=== PATIENT | female | born 1970 | race Caucasian/White ===

== ENCOUNTER 2018-03-01 12:43 | Inpatient (IN) | payer MEDICAID, SELFPAY ==
[~2018-03-01] VITALS: Ht 165.1 cm; Wt 129.3 kg
[2018-03-01] MEDS ORDERED: SODIUM CHLORIDE 0.9% 1,000ML IVBOLUS ONE (13:00)
[2018-03-01] MEDS ORDERED: SODIUM CHLORIDE FLUSH 10ML SYR IVF ONE (13:00)
[2018-03-01] MEDS ORDERED: ACETAMINOPHEN 325 MG TABLET ONE (13:15)
[2018-03-01] MEDS ORDERED: ACETAMINOPHEN 325 MG TABLET PO ONE (13:30)
[2018-03-01] MEDS ORDERED: MORPHINE SULFATE 4 MG/ML, 1ML IVPush PRN (13:30)
[2018-03-01 13:36] LABS: ALBUMIN 2.6 g/dL (3.4-5.0); ANION GAP 10 mmol/L (5-15); CALCIUM 9.7 mg/dL (8.5-10.1); CHLORIDE 101 mmol/L (98-107)
[2018-03-01] MEDS ORDERED: MORPHINE SULFATE 4 MG/ML, 1ML ONE (13:36)
[2018-03-01 13:42] LABS: ALANINE AMINOTRANSFERASE 81 U/L (12-78); ALKALINE PHOSPHATASE 673 U/L (45-117); BILIRUBIN,TOTAL 0.8 mg/dL (0.2-1.0); TOTAL PROTEIN 7.8 g/dL (6.4-8.2); TROPONIN I < 0.015 ng/mL (0.000-0.045)
[2018-03-01 13:43] LABS: MD YES; MEAN CORPUSCULAR HEMOGLOBIN 30.1 pg (27.0-34.8); MEAN CORPUSCULAR HGB CONC 33.9 g/dL (32.4-35.8); MEAN CORPUSCULAR VOLUME 88.8 fL (80-100); MEAN PLATELET VOLUME 8.8 fL (7.4-10.4); PLATELET COUNT 88 x10^3/uL (130-400); RED BLOOD COUNT 3.79 x10^6/uL (3.82-5.3); RED CELL DISTRIBUTION WIDTH 13.8 % (9.6-15.2)
[2018-03-01 13:51] LABS: BAND#(MANUAL) 0.76 x10^3/uL; BANDS%(MANUAL) 9 % (0-7); BASOS#(MANUAL) 0.08 x10^3/uL (0-0.1); BASOS% (MANUAL) 1 % (0-1); METAMYELOCYTES# (MANUAL) 0.17 x10^3/uL (0-0); METAMYELOCYTES% (MANUAL) 2 % (0-1)
[2018-03-01 13:54] LABS: NRBC % (MANUAL) 7 % (0-1); OTHER CELLS # (MANUAL) 0.08 x10^3/uL (0-0); OTHER CELLS % (MANUAL) 1 % (0-0)
[2018-03-01 13:55] LABS: LYMPHS% (MANUAL) 19 % (22-44); MONOS% (MANUAL) 6 % (2-9); SEG#(MANUAL) 5.21 x10^3/uL (1.8-6.8); SEGS% (MANUAL) 62 % (42-75)
[2018-03-01 13:56] LABS: <PLATELET ESTIMATE> DECREASED; ANISOCYTOSIS 1+; POLYCHROMASIA 1+
[2018-03-01 13:57] LABS: <PLT MORPHOLOGY> NORMAL PLT MORPH
[2018-03-01] MEDS ORDERED: OMNIPAQUE 350 MG/ML, 150 ML BOTTLE ONE (14:11)
[2018-03-01] MEDS ORDERED: ALBUTEROL/IPRATROPIUM 2.5MG/0.5MG, 3 ML ONE (14:22)
[2018-03-01] MEDS: ALBUTEROL/IPRATROPIUM 2.5MG/0.5MG, 3 ML NPPB SCH ×2 (14:25→14:26)
[2018-03-01] MEDS ORDERED: IBUP-1484 PO (15:12)
[2018-03-01] MEDS ORDERED: SODIUM CHLORIDE FLUSH 10ML SYR IVF PRN (15:30)
[2018-03-01] MEDS ORDERED: ONDANSETRON 2MG/ML, 2ML IVPush PRN (16:00)
[2018-03-01] MEDS ORDERED: LABETALOL 5MG/ML, 20ML IVPush PRN (16:00)
[2018-03-01] MEDS ORDERED: NITROGLYCERIN 0.4 MG BOTTLE (25 TABS) SL PRN (16:00)
[2018-03-01] MEDS ORDERED: ASPIRIN 81 MG TABLET CHEW PO ONE ×2 (16:00→21:00)
[2018-03-01] MEDS ORDERED: ACETAMINOPHEN 325 MG TABLET PO PRN (16:00)
[2018-03-01] MEDS: SODIUM CHLORIDE 0.9% 1,000 ML IV SCH ×2 (16:16→20:44)
[2018-03-01 16:43] LABS: INTERNATIONAL NORMALIZED RATIO 1.2 (0.93-1.1); PROTHROMBIN TIME 12.3 Seconds (9.6-11.5)
[2018-03-01 16:47] LABS: ACETAMINOPHEN 3 mcg/mL (10-30); TROPONIN I < 0.015 ng/mL (0.000-0.045)
[2018-03-01] MEDS ORDERED: SODIUM BICARBONATE 4.0%, 5ML ONE (17:20)
[2018-03-01] MEDS ORDERED: LIDOCAINE 1%, 20ML ONE (17:20)
[2018-03-01] MEDS ORDERED: LIDOCAINE 1%-EPI 1:100K, 20ML ONE (17:20)
[2018-03-01 20:00] VITALS: BP 133/79
[2018-03-01] MEDS: HEPARIN 5,000 UNITS/ML, 1ML SQ SCH (20:45)
[2018-03-01] MEDS: OXYcodone/APAP 5/325MG TABLET PO PRN (20:45)
[2018-03-01 23:21] LABS: TROPONIN I < 0.015 ng/mL (0.000-0.045)
[2018-03-02] MEDS: OXYcodone/APAP 5/325MG TABLET PO PRN ×5 (01:03→20:31)
[2018-03-02 01:50] VITALS: BP 97/63
[2018-03-02 04:40] LABS: MEAN CORPUSCULAR HEMOGLOBIN 29.5 pg (27.0-34.8); MEAN CORPUSCULAR HGB CONC 33.4 g/dL (32.4-35.8); MEAN CORPUSCULAR VOLUME 88.6 fL (80-100); MEAN PLATELET VOLUME 8.5 fL (7.4-10.4); PLATELET COUNT 72 x10^3/uL (130-400); RED BLOOD COUNT 3.19 x10^6/uL (3.82-5.3); RED CELL DISTRIBUTION WIDTH 13.8 % (9.6-15.2)
[2018-03-02 04:46] LABS: ALBUMIN 2.3 g/dL (3.4-5.0); ANION GAP 11 mmol/L (5-15); CALCIUM 8.4 mg/dL (8.5-10.1); CHLORIDE 105 mmol/L (98-107)
[2018-03-02 04:49] LABS: ALANINE AMINOTRANSFERASE 68 U/L (12-78); ALKALINE PHOSPHATASE 547 U/L (45-117); BILIRUBIN,TOTAL 0.7 mg/dL (0.2-1.0); TOTAL PROTEIN 6.7 g/dL (6.4-8.2)
[2018-03-02 05:07] LABS: MD YES
[2018-03-02 05:10] LABS: <PLATELET ESTIMATE> DECREASED; <PLT MORPHOLOGY> NORMAL PLT MORPH; ANISOCYTOSIS 1+; BAND#(MANUAL) 0.64 x10^3/uL; BANDS%(MANUAL) 10 % (0-7); EOS#(MANUAL) 0.06 x10^3/uL (0.0-0.4); EOS% (MANUAL) 1 % (1-7); LYMPH#(MANUAL) 1.28 x10^3/uL (1-3.4); LYMPHS% (MANUAL) 20 % (22-44); METAMYELOCYTES# (MANUAL) 0.06 x10^3/uL (0-0); METAMYELOCYTES% (MANUAL) 1 % (0-1); MONOS#(MANUAL) 0.26 x10^3/uL (0.3-2.7); MONOS% (MANUAL) 4 % (2-9); MYELOCYTES# (MANUAL) 0.13 x10^3/uL (0-0); MYELOCYTES% (MANUAL) 2 % (0-0); NRBC % (MANUAL) 4 % (0-1); POLYCHROMASIA 1+; SEG#(MANUAL) 3.97 x10^3/uL (1.8-6.8); SEGS% (MANUAL) 62 % (42-75)
[2018-03-02] MEDS: HEPARIN 5,000 UNITS/ML, 1ML SQ SCH ×3 (05:19→20:09)
[2018-03-02 07:49] VITALS: BP 105/64
[2018-03-02 10:57] LABS: MICROSCOPIC INDICATED
[2018-03-02] MEDS ORDERED: OMNIPAQUE 350 MG/ML, 150 ML BOTTLE ONE (14:30)
[2018-03-02] MEDS ORDERED: GADOBUTROL 15 MMOL/15 ML VIAL ONE (14:54)
[2018-03-02] MEDS ORDERED: SODIUM CHLORIDE 0.9% 1,000 ML IV SCH (15:55)
[2018-03-02] MEDS: SODIUM CHLORIDE 0.9% 1,000 ML IV SCH (15:55)
[2018-03-02 19:46] VITALS: BP 106/67
[2018-03-02] MEDS: TRAZODONE 50MG TABLET PO PRN (22:03)
[2018-03-03 00:48] VITALS: BP 114/77
[2018-03-03] MEDS: SODIUM CHLORIDE 0.9% 1,000 ML IV SCH ×2 (02:01→16:15)
[2018-03-03] MEDS: OXYcodone/APAP 5/325MG TABLET PO PRN ×4 (03:55→22:15)
[2018-03-03 04:30] LABS: ALBUMIN 2.2 g/dL (3.4-5.0); ANION GAP 16 mmol/L (5-15); CALCIUM 8.9 mg/dL (8.5-10.1); CHLORIDE 102 mmol/L (98-107)
[2018-03-03 04:34] LABS: ALANINE AMINOTRANSFERASE 66 U/L (12-78); ALKALINE PHOSPHATASE 633 U/L (45-117); CREATININE 1.62 mg/dL (0.55-1.02)
[2018-03-03 05:09] LABS: MD YES; MEAN CORPUSCULAR HEMOGLOBIN 30.4 pg (27.0-34.8); MEAN CORPUSCULAR HGB CONC 33.9 g/dL (32.4-35.8); MEAN CORPUSCULAR VOLUME 89.8 fL (80-100); MEAN PLATELET VOLUME 9.1 fL (7.4-10.4); PLATELET COUNT 64 x10^3/uL (130-400); RED CELL DISTRIBUTION WIDTH 14.7 % (9.6-15.2)
[2018-03-03 05:12] LABS: ANISOCYTOSIS 1+; BAND#(MANUAL) 1.07 x10^3/uL; BANDS%(MANUAL) 15 % (0-7); LYMPH#(MANUAL) 1.85 x10^3/uL (1-3.4); LYMPHS% (MANUAL) 26 % (22-44); MONOS#(MANUAL) 0.28 x10^3/uL (0.3-2.7); MONOS% (MANUAL) 4 % (2-9); MYELOCYTES# (MANUAL) 0.07 x10^3/uL (0-0); MYELOCYTES% (MANUAL) 1 % (0-0); NRBC % (MANUAL) 5 % (0-1); SEG#(MANUAL) 3.83 x10^3/uL (1.8-6.8); SEGS% (MANUAL) 54 % (42-75)
[2018-03-03 05:13] LABS: <PLATELET ESTIMATE> DECREASED; <PLT MORPHOLOGY> NORMAL PLT MORPH; POLYCHROMASIA 1+
[2018-03-03] MEDS: HEPARIN 5,000 UNITS/ML, 1ML SQ SCH ×3 (05:32→22:15)
[2018-03-03 08:00] VITALS: BP 110/69
[2018-03-03 13:33] VITALS: BP 107/68
[2018-03-03 19:36] VITALS: BP 117/74
[2018-03-03] MEDS: TRAZODONE 50MG TABLET PO PRN (22:15)
[2018-03-04] MEDS: SODIUM CHLORIDE 0.9% 1,000 ML IV SCH ×4 (01:05→21:53)
[2018-03-04 02:30] VITALS: BP 101/69
[2018-03-04 05:16] LABS: ALBUMIN 2.1 g/dL (3.4-5.0); ANION GAP 11 mmol/L (5-15); CALCIUM 8.6 mg/dL (8.5-10.1); CHLORIDE 103 mmol/L (98-107)
[2018-03-04 05:19] LABS: ALANINE AMINOTRANSFERASE 59 U/L (12-78); ALKALINE PHOSPHATASE 766 U/L (45-117); BILIRUBIN,TOTAL 1.3 mg/dL (0.2-1.0); CREATININE 1.75 mg/dL (0.55-1.02); TOTAL PROTEIN 6.6 g/dL (6.4-8.2)
[2018-03-04] MEDS: OXYcodone/APAP 5/325MG TABLET PO PRN ×3 (05:22→18:38)
[2018-03-04] MEDS: HEPARIN 5,000 UNITS/ML, 1ML SQ SCH ×3 (05:22→21:51)
[2018-03-04 05:24] LABS: MEAN CORPUSCULAR HEMOGLOBIN 30.9 pg (27.0-34.8); MEAN CORPUSCULAR VOLUME 88.4 fL (80-100); MEAN PLATELET VOLUME 8.8 fL (7.4-10.4); PLATELET COUNT 55 x10^3/uL (130-400); RED BLOOD COUNT 2.73 x10^6/uL (3.82-5.3); RED CELL DISTRIBUTION WIDTH 14.4 % (9.6-15.2)
[2018-03-04 05:25] LABS: MD YES
[2018-03-04 05:29] LABS: <PLATELET ESTIMATE> DECREASED; <PLT MORPHOLOGY> NORMAL PLT MORPH; ANISOCYTOSIS 1+; BAND#(MANUAL) 1.14 x10^3/uL; BANDS%(MANUAL) 20 % (0-7); LYMPH#(MANUAL) 0.86 x10^3/uL (1-3.4); LYMPHS% (MANUAL) 15 % (22-44); METAMYELOCYTES# (MANUAL) 0.17 x10^3/uL (0-0); METAMYELOCYTES% (MANUAL) 3 % (0-1); MONOS#(MANUAL) 0.23 x10^3/uL (0.3-2.7); MONOS% (MANUAL) 4 % (2-9); NRBC % (MANUAL) 5 % (0-1); POLYCHROMASIA 1+; SEG#(MANUAL) 3.31 x10^3/uL (1.8-6.8); SEGS% (MANUAL) 58 % (42-75)
[2018-03-04 08:04] VITALS: BP 96/61
[2018-03-04 11:40] LABS: POTASSIUM,URINE RANDOM 44 mmol/L
[2018-03-04 11:46] LABS: CHLORIDE,URINE RANDOM < 10 mmol/L; SODIUM,URINE RANDOM < 5 mmol/L
[2018-03-04 11:50] LABS: MICROSCOPIC INDICATED
[2018-03-04 12:53] VITALS: BP 103/67
[2018-03-04] MEDS ORDERED: SODIUM CHLORIDE 0.9% 1,000 ML IV SCH (15:55)
[2018-03-04 19:40] VITALS: BP 97/52
[2018-03-04] MEDS: TRAZODONE 50MG TABLET PO PRN (21:51)
[2018-03-05 01:47] VITALS: BP 95/56
[2018-03-05 02:34] VITALS: BP 122/74
[2018-03-05] MEDS: OXYcodone/APAP 5/325MG TABLET PO PRN ×2 (02:58→09:07)
[2018-03-05] MEDS: SODIUM CHLORIDE 0.9% 1,000 ML IV SCH ×2 (05:02→12:01)
[2018-03-05] MEDS: HEPARIN 5,000 UNITS/ML, 1ML SQ SCH (05:06)
[2018-03-05 05:38] LABS: MEAN CORPUSCULAR HEMOGLOBIN 30.4 pg (27.0-34.8); MEAN CORPUSCULAR HGB CONC 34.2 g/dL (32.4-35.8); MEAN CORPUSCULAR VOLUME 88.8 fL (80-100); MEAN PLATELET VOLUME 8.5 fL (7.4-10.4); RED BLOOD COUNT 2.75 x10^6/uL (3.82-5.3); RED CELL DISTRIBUTION WIDTH 14.6 % (9.6-15.2)
[2018-03-05 05:42] LABS: PLATELET COUNT 49 x10^3/uL (130-400)
[2018-03-05 05:43] LABS: CHLORIDE 104 mmol/L (98-107)
[2018-03-05 05:58] LABS: MD YES
[2018-03-05 05:59] LABS: ALANINE AMINOTRANSFERASE 58 U/L (12-78); ALBUMIN 1.9 g/dL (3.4-5.0); ALKALINE PHOSPHATASE 815 U/L (45-117); ANION GAP 15 mmol/L (5-15); BILIRUBIN,TOTAL 1.4 mg/dL (0.2-1.0); CALCIUM 8.7 mg/dL (8.5-10.1); CREATINE KINASE, TOTAL 310 U/L (26-192); CREATININE 1.38 mg/dL (0.55-1.02); TOTAL PROTEIN 6.4 g/dL (6.4-8.2)
[2018-03-05 06:01] LABS: ANISOCYTOSIS 1+; BAND#(MANUAL) 0.95 x10^3/uL; BANDS%(MANUAL) 15 % (0-7); LYMPH#(MANUAL) 0.82 x10^3/uL (1-3.4); LYMPHS% (MANUAL) 13 % (22-44); METAMYELOCYTES# (MANUAL) 0.19 x10^3/uL (0-0); METAMYELOCYTES% (MANUAL) 3 % (0-1); MONOS#(MANUAL) 0.13 x10^3/uL (0.3-2.7); MONOS% (MANUAL) 2 % (2-9); MYELOCYTES# (MANUAL) 0.06 x10^3/uL (0-0); MYELOCYTES% (MANUAL) 1 % (0-0); NRBC % (MANUAL) 8 % (0-1); POLYCHROMASIA 1+; SEG#(MANUAL) 4.16 x10^3/uL (1.8-6.8); SEGS% (MANUAL) 66 % (42-75)
[2018-03-05 06:03] LABS: <PLATELET ESTIMATE> DECREASED; <PLT MORPHOLOGY> NORMAL PLT MORPH
[2018-03-05 07:27] VITALS: BP 109/66
[2018-03-05] MEDS: METOPROLOL TARTRATE 25 MG TABLET PO SCH ×2 (08:58→17:43)
[2018-03-05 10:49] LABS: HIT RESULT POSITIVE (NEGATIVE)
[2018-03-05 12:24] VITALS: BP_SYST 90; BP_SYST 95; BP_DIAS 55; BP_DIAS 62
[2018-03-05] MEDS ORDERED: ERGOCALCIFEROL 50,000 UNIT CAPSULE PO SCH (15:00)
[2018-03-05] MEDS: MEROPENEM 1 GM in SODIUM CHLORIDE 0.9% 100 ML IV SCH ×2 (15:25→23:05)
[2018-03-05] MEDS: SODIUM BICARB 8.4%,50ML SYR. 75 MEQ in SODIUM CHLORIDE 0.45% 1,000 ML IV SCH (17:05)
[2018-03-05 19:16] VITALS: BP 102/66
[2018-03-06 00:44] VITALS: BP 114/69
[2018-03-06] MEDS: morphine SULFATE 10 MG/ML, 1ML IVPush PRN ×3 (00:46→19:45)
[2018-03-06] MEDS: SODIUM BICARB 8.4%,50ML SYR. 75 MEQ in SODIUM CHLORIDE 0.45% 1,000 ML IV SCH ×2 (03:57→11:53)
[2018-03-06 05:46] LABS: MEAN CORPUSCULAR HEMOGLOBIN 30.2 pg (27.0-34.8); MEAN CORPUSCULAR HGB CONC 34.3 g/dL (32.4-35.8); RED BLOOD COUNT 2.66 x10^6/uL (3.82-5.3)
[2018-03-06 05:50] LABS: CHLORIDE 107 mmol/L (98-107)
[2018-03-06 06:00] LABS: ALANINE AMINOTRANSFERASE 60 U/L (12-78); ALBUMIN 1.8 g/dL (3.4-5.0); ALKALINE PHOSPHATASE 906 U/L (45-117); ANION GAP 14 mmol/L (5-15); BILIRUBIN,TOTAL 1.4 mg/dL (0.2-1.0); CALCIUM 8.5 mg/dL (8.5-10.1); CREATININE 0.97 mg/dL (0.55-1.02); TOTAL PROTEIN 6.1 g/dL (6.4-8.2)
[2018-03-06] MEDS: METOPROLOL TARTRATE 25 MG TABLET PO SCH ×2 (06:00→17:34)
[2018-03-06] MEDS: MEROPENEM 1 GM in SODIUM CHLORIDE 0.9% 100 ML IV SCH (06:46)
[2018-03-06 06:47] LABS: MEAN PLATELET VOLUME 8.7 fL (7.4-10.4)
[2018-03-06 06:49] LABS: PLATELET COUNT 36 x10^3/uL (130-400)
[2018-03-06 06:50] LABS: MD YES
[2018-03-06 06:54] LABS: ANISOCYTOSIS 1+; BAND#(MANUAL) 0.86 x10^3/uL; BANDS%(MANUAL) 16 % (0-7); EOS#(MANUAL) 0.16 x10^3/uL (0.0-0.4); EOS% (MANUAL) 3 % (1-7); LYMPH#(MANUAL) 1.19 x10^3/uL (1-3.4); LYMPHS% (MANUAL) 22 % (22-44); METAMYELOCYTES# (MANUAL) 0.16 x10^3/uL (0-0); METAMYELOCYTES% (MANUAL) 3 % (0-1); MONOS#(MANUAL) 0.27 x10^3/uL (0.3-2.7); MONOS% (MANUAL) 5 % (2-9); MYELOCYTES# (MANUAL) 0.05 x10^3/uL (0-0); MYELOCYTES% (MANUAL) 1 % (0-0); NRBC % (MANUAL) 10 % (0-1); SEGS% (MANUAL) 50 % (42-75)
[2018-03-06 06:55] LABS: <PLATELET ESTIMATE> DECREASED; <PLT MORPHOLOGY> NORMAL PLT MORPH; POLYCHROMASIA 1+
[2018-03-06 06:59] VITALS: BP 121/78
[2018-03-06 08:21] LABS: ABSOLUTE RETICS # 0.06 x10^6/uL (0.5-2.5); RED BLOOD COUNT 2.69 x10^6/uL (3.82-5.3); RETICULOCYTE COUNT % 2.21 % (0.5-1.5)
[2018-03-06 08:25] LABS: FREE T4 (FREE THYROXINE) 0.92 ng/dL (0.76-1.46)
[2018-03-06] MEDS ORDERED: FONDAPARINUX 2.5 MG/0.5 ML SQ SCH (09:00)
[2018-03-06] MEDS ORDERED: LIDOCAINE-MPF 1%, 5ML ONE (10:03)
[2018-03-06] MEDS ORDERED: FENTANYL PF 100 MCG/2ML ONE (10:11)
[2018-03-06] MEDS ORDERED: FLUMAZENIL 0.1 MG/1 ML, 5ML ONE (10:12)
[2018-03-06] MEDS ORDERED: NALOXONE 1 MG/ML, 2ML ONE (10:12)
[2018-03-06] MEDS ORDERED: MIDAZOLAM 1 MG/ML, 5ML ONE (10:12)
[2018-03-06] MEDS ORDERED: LEVOFLOXACIN 500 MG TABLET PO SCH (12:30)
[2018-03-06 13:04] VITALS: BP 101/63
[2018-03-06] MEDS ORDERED: SODIUM BICARB 8.4%,50ML SYR. 75 MEQ in SODIUM CHLORIDE 0.45% 1,000 ML IV SCH (16:30)
[2018-03-06 16:56] LABS: ANA SCREEN POSITIVE (Negative); ANTI-NUCLEAR ANTIBODY PATTERN SPECKLED
[2018-03-06] MEDS: SULFAMETH./TRIMETHOPRIM DS 800MG/160MG TABLET PO SCH (19:45)
[2018-03-06 20:00] VITALS: BP 106/66
[2018-03-07] MEDS: morphine SULFATE 10 MG/ML, 1ML IVPush PRN ×5 (00:45→21:38)
[2018-03-07 01:39] VITALS: BP 115/70
[2018-03-07 04:57] LABS: MEAN CORPUSCULAR VOLUME 88.3 fL (80-100); MEAN PLATELET VOLUME 9.7 fL (7.4-10.4); RED BLOOD COUNT 2.59 x10^6/uL (3.82-5.3); RED CELL DISTRIBUTION WIDTH 14.5 % (9.6-15.2)
[2018-03-07 05:00] LABS: CHLORIDE 108 mmol/L (98-107)
[2018-03-07 05:02] LABS: PLATELET COUNT 26 x10^3/uL (130-400)
[2018-03-07 05:09] LABS: ALANINE AMINOTRANSFERASE 63 U/L (12-78); ALBUMIN 1.7 g/dL (3.4-5.0); ALKALINE PHOSPHATASE 970 U/L (45-117); BILIRUBIN,TOTAL 1.5 mg/dL (0.2-1.0); CREATININE 0.71 mg/dL (0.55-1.02); TOTAL PROTEIN 5.5 g/dL (6.4-8.2)
[2018-03-07 05:11] LABS: MD YES
[2018-03-07 05:13] VITALS: BP 108/67
[2018-03-07 05:13] LABS: BAND#(MANUAL) 0.41 x10^3/uL; BANDS%(MANUAL) 8 % (0-7); EOS#(MANUAL) 0.05 x10^3/uL (0.0-0.4); EOS% (MANUAL) 1 % (1-7); LYMPH#(MANUAL) 1.22 x10^3/uL (1-3.4); LYMPHS% (MANUAL) 24 % (22-44); METAMYELOCYTES% (MANUAL) 2 % (0-1); MONOS#(MANUAL) 0.26 x10^3/uL (0.3-2.7); MONOS% (MANUAL) 5 % (2-9); NRBC % (MANUAL) 8 % (0-1); SEG#(MANUAL) 3.06 x10^3/uL (1.8-6.8); SEGS% (MANUAL) 60 % (42-75)
[2018-03-07 05:14] LABS: <PLATELET ESTIMATE> DECREASED; <PLT MORPHOLOGY> NORMAL PLT MORPH; ANISOCYTOSIS 1+; POLYCHROMASIA 1+
[2018-03-07] MEDS: METOPROLOL TARTRATE 25 MG TABLET PO SCH ×2 (05:14→18:08)
[2018-03-07 05:15] LABS: ANION GAP 10 mmol/L (5-15)
[2018-03-07 07:19] VITALS: BP 112/72
[2018-03-07] MEDS: SULFAMETH./TRIMETHOPRIM DS 800MG/160MG TABLET PO SCH ×2 (08:51→21:39)
[2018-03-07] MEDS ORDERED: MAGNESIUM HYDROXIDE 8%, 30ML UDC PO PRN (09:00)
[2018-03-07] MEDS ORDERED: DOCUSATE 100 MG CAPSULE PO PRN (09:00)
[2018-03-07 13:36] VITALS: BP 121/77
[2018-03-07 17:24] LABS: OCCULT BLOOD NEGATIVE (NEGATIVE)
[2018-03-07 20:34] VITALS: BP 127/68
[2018-03-08] MEDS: morphine SULFATE 10 MG/ML, 1ML IVPush PRN ×2 (01:36→05:56)
[2018-03-08 01:47] VITALS: BP 116/71
[2018-03-08 05:41] LABS: ALBUMIN 1.6 g/dL (3.4-5.0); ANION GAP 13 mmol/L (5-15); CHLORIDE 107 mmol/L (98-107)
[2018-03-08] MEDS: METOPROLOL TARTRATE 25 MG TABLET PO SCH ×2 (05:47→17:36)
[2018-03-08 05:48] VITALS: BP 99/64
[2018-03-08 05:56] LABS: ALANINE AMINOTRANSFERASE 64 U/L (12-78); ALKALINE PHOSPHATASE 999 U/L (45-117); BILIRUBIN,TOTAL 1.9 mg/dL (0.2-1.0); CREATININE 1.03 mg/dL (0.55-1.02); TOTAL PROTEIN 5.7 g/dL (6.4-8.2)
[2018-03-08 06:08] LABS: MD YES
[2018-03-08 06:09] LABS: MEAN CORPUSCULAR HEMOGLOBIN 30.3 pg (27.0-34.8); MEAN CORPUSCULAR HGB CONC 34.4 g/dL (32.4-35.8); MEAN CORPUSCULAR VOLUME 87.9 fL (80-100); MEAN PLATELET VOLUME 9.7 fL (7.4-10.4); RED BLOOD COUNT 2.43 x10^6/uL (3.82-5.3); RED CELL DISTRIBUTION WIDTH 14.9 % (9.6-15.2)
[2018-03-08 06:11] LABS: PLATELET COUNT 21 x10^3/uL (130-400)
[2018-03-08 06:15] LABS: BAND#(MANUAL) 0.47 x10^3/uL; BANDS%(MANUAL) 8 % (0-7); BASOS#(MANUAL) 0.06 x10^3/uL (0-0.1); BASOS% (MANUAL) 1 % (0-1); EOS#(MANUAL) 0.06 x10^3/uL (0.0-0.4); EOS% (MANUAL) 1 % (1-7); LYMPH#(MANUAL) 1.53 x10^3/uL (1-3.4); LYMPHS% (MANUAL) 26 % (22-44); METAMYELOCYTES# (MANUAL) 0.12 x10^3/uL (0-0); METAMYELOCYTES% (MANUAL) 2 % (0-1); MONOS% (MANUAL) 5 % (2-9); MYELOCYTES# (MANUAL) 0.12 x10^3/uL (0-0); MYELOCYTES% (MANUAL) 2 % (0-0); NRBC % (MANUAL) 8 % (0-1); SEG#(MANUAL) 3.25 x10^3/uL (1.8-6.8); SEGS% (MANUAL) 55 % (42-75)
[2018-03-08 06:21] LABS: <PLATELET ESTIMATE> DECREASED; <PLT MORPHOLOGY> NORMAL PLT MORPH; ANISOCYTOSIS 1+; POLYCHROMASIA 1+
[2018-03-08 07:20] VITALS: BP 101/64
[2018-03-08] MEDS: SULFAMETH./TRIMETHOPRIM DS 800MG/160MG TABLET PO SCH ×2 (08:31→21:56)
[2018-03-08 13:20] VITALS: BP 108/61
[2018-03-08] MEDS: OXYcodone/APAP 5/325MG TABLET PO PRN ×2 (13:45→21:56)
[2018-03-08 20:21] VITALS: BP 92/52
[2018-03-08 23:48] VITALS: BP 91/58
[2018-03-09] VITALS (15 sets, daily range): BP systolic 72–109; BP diastolic 43–59
[2018-03-09 04:42] LABS: CHLORIDE 106 mmol/L (98-107); MEAN CORPUSCULAR HEMOGLOBIN 29.8 pg (27.0-34.8); MEAN CORPUSCULAR HGB CONC 33.3 g/dL (32.4-35.8); MEAN CORPUSCULAR VOLUME 89.6 fL (80-100); MEAN PLATELET VOLUME 11.2 fL (7.4-10.4); RED BLOOD COUNT 2.44 x10^6/uL (3.82-5.3); RED CELL DISTRIBUTION WIDTH 15.3 % (9.6-15.2)
[2018-03-09 04:46] LABS: PLATELET COUNT 15 x10^3/uL (130-400)
[2018-03-09 04:50] LABS: ALANINE AMINOTRANSFERASE 80 U/L (12-78); ALBUMIN 1.6 g/dL (3.4-5.0); ALKALINE PHOSPHATASE 937 U/L (45-117); ANION GAP 12 mmol/L (5-15); BILIRUBIN,TOTAL 2.5 mg/dL (0.2-1.0); CALCIUM 9.7 mg/dL (8.5-10.1); CREATININE 2.04 mg/dL (0.55-1.02); TOTAL PROTEIN 5.6 g/dL (6.4-8.2)
[2018-03-09 05:42] LABS: MD YES
[2018-03-09 05:44] LABS: BAND#(MANUAL) 0.35 x10^3/uL; BANDS%(MANUAL) 5 % (0-7); BASOS#(MANUAL) 0.14 x10^3/uL (0-0.1); BASOS% (MANUAL) 2 % (0-1); EOS#(MANUAL) 0.07 x10^3/uL (0.0-0.4); EOS% (MANUAL) 1 % (1-7); LYMPH#(MANUAL) 1.61 x10^3/uL (1-3.4); LYMPHS% (MANUAL) 23 % (22-44); METAMYELOCYTES# (MANUAL) 0.21 x10^3/uL (0-0); METAMYELOCYTES% (MANUAL) 3 % (0-1); MYELOCYTES# (MANUAL) 0.07 x10^3/uL (0-0); MYELOCYTES% (MANUAL) 1 % (0-0); NRBC % (MANUAL) 9 % (0-1); SEG#(MANUAL) 4.55 x10^3/uL (1.8-6.8); SEGS% (MANUAL) 65 % (42-75)
[2018-03-09 05:45] LABS: <PLATELET ESTIMATE> DECREASED; <PLT MORPHOLOGY> NORMAL PLT MORPH; ANISOCYTOSIS 1+; POLYCHROMASIA 1+
[2018-03-09] MEDS: METOPROLOL TARTRATE 25 MG TABLET PO SCH ×2 (05:47→17:20)
[2018-03-09] MEDS: SULFAMETH./TRIMETHOPRIM DS 800MG/160MG TABLET PO SCH (08:27)
[2018-03-09] MEDS: morphine SULFATE 10 MG/ML, 1ML IVPush PRN ×3 (08:42→17:19)
[2018-03-09] MEDS: OXYcodone/APAP 5/325MG TABLET PO PRN (10:05)
[2018-03-09] MEDS ORDERED: LABETALOL 5MG/ML, 20ML IVPush PRN (13:00)
[2018-03-09] MEDS: SODIUM CHLORIDE 0.9% 1,000 ML IV SCH ×2 (14:46→21:12)
[2018-03-09] MEDS ORDERED: CEFTRIAXONE PMX 2GM/50ML 50 ML IV SCH (15:00)
[2018-03-09] MEDS ORDERED: DIPHENHYDRAMINE 50 MG/ML, 1ML IVPush ONE (18:00)
[2018-03-09] MEDS ORDERED: SODIUM CHLORIDE 0.9%, 500ML IVBOLUS ONE (18:30)
[2018-03-09] MEDS ORDERED: SODIUM CHLORIDE 0.9% 1,000ML IVBOLUS ONE (20:00)
[2018-03-09 20:49] LABS: MICROSCOPIC INDICATED
[2018-03-09 20:50] LABS: CULTURE INDICATED? YES
[2018-03-10 03:34] VITALS: BP 104/48
[2018-03-10] MEDS: morphine SULFATE 10 MG/ML, 1ML IVPush PRN ×4 (03:41→10:03)
[2018-03-10] MEDS: SODIUM CHLORIDE 0.9% 1,000 ML IV SCH ×2 (04:32→11:00)
[2018-03-10] MEDS: METOPROLOL TARTRATE 25 MG TABLET PO SCH ×2 (04:42→15:16)
[2018-03-10 05:40] LABS: ALANINE AMINOTRANSFERASE 122 U/L (12-78); ALBUMIN 1.6 g/dL (3.4-5.0); ANION GAP 15 mmol/L (5-15); CALCIUM 8.8 mg/dL (8.5-10.1); CHLORIDE 109 mmol/L (98-107); CREATININE 2.72 mg/dL (0.55-1.02)
[2018-03-10 05:47] LABS: ALKALINE PHOSPHATASE 924 U/L (45-117); BILIRUBIN,TOTAL 3.3 mg/dL (0.2-1.0); TOTAL PROTEIN 5.4 g/dL (6.4-8.2)
[2018-03-10 06:06] LABS: MEAN CORPUSCULAR HEMOGLOBIN 30.2 pg (27.0-34.8); MEAN CORPUSCULAR HGB CONC 33.9 g/dL (32.4-35.8); MEAN CORPUSCULAR VOLUME 89.1 fL (80-100); MEAN PLATELET VOLUME 10.5 fL (7.4-10.4); RED BLOOD COUNT 2.35 x10^6/uL (3.82-5.3); RED CELL DISTRIBUTION WIDTH 15.7 % (9.6-15.2)
[2018-03-10 06:08] LABS: PLATELET COUNT 20 x10^3/uL (130-400)
[2018-03-10 06:10] LABS: MD YES
[2018-03-10 06:12] LABS: ANISOCYTOSIS 1+; BAND#(MANUAL) 0.25 x10^3/uL; BANDS%(MANUAL) 4 % (0-7); LYMPH#(MANUAL) 1.55 x10^3/uL (1-3.4); LYMPHS% (MANUAL) 25 % (22-44); MONOS#(MANUAL) 0.31 x10^3/uL (0.3-2.7); MONOS% (MANUAL) 5 % (2-9); MYELOCYTES# (MANUAL) 0.12 x10^3/uL (0-0); MYELOCYTES% (MANUAL) 2 % (0-0); NRBC % (MANUAL) 7 % (0-1); POLYCHROMASIA 1+; SEG#(MANUAL) 3.97 x10^3/uL (1.8-6.8); SEGS% (MANUAL) 64 % (42-75)
[2018-03-10 06:13] LABS: <PLATELET ESTIMATE> DECREASED; <PLT MORPHOLOGY> NORMAL PLT MORPH
[2018-03-10 06:52] VITALS: BP 98/48
[2018-03-10] MEDS ORDERED: LORazepam INTENSOL 2 MG/ML SL PRN (10:00)
[2018-03-10] MEDS ORDERED: SCOPOLAMINE PATCH, 1.5MG PATCH.TD72 TD PRN (10:00)
[2018-03-10] MEDS ORDERED: ALBUMIN HUMAN 25% 50 ML IV SCH (10:00)
[2018-03-10] MEDS ORDERED: LORazepam 2 MG/ML, 1ML ONE (10:00)
[2018-03-10] MEDS ORDERED: LORazepam 2 MG/ML, 1ML IVPush ONE (10:00)
[2018-03-10] MEDS: LORazepam 2 MG/ML, 1ML IVPush PRN ×3 (18:16→22:00)
== END 2018-03-11 00:30 | disposition expired | DRG 853 ==
LOC: ED 15:17 → EDIP 15:24 → 4WST 16:54 → 3NW 03-09 12:00
PROVIDERS: ADMIT Hospitalist; ATTEND Hospitalist
PROC: 07B63ZX Excision of Left Axillary Lymphatic, Percutaneous Approach, Diagnostic (ICD-10-PCS; 2018-03-01)
PROC: 0HBU3ZX Excision of Left Breast, Percutaneous Approach, Diagnostic (ICD-10-PCS; 2018-03-01)
PROC: 07DR3ZX Extraction of Iliac Bone Marrow, Percutaneous Approach, Diagnostic (ICD-10-PCS; 2018-03-06)
PROC: 30233R1 Transfusion of Nonautologous Platelets into Peripheral Vein, Percutaneous Approach (ICD-10-PCS; principal; 2018-03-09)
PROC: 0T9B70Z Drainage of Bladder with Drainage Device, Via Natural or Artificial Opening (ICD-10-PCS; 2018-03-09)
DX: A41.9 Sepsis, unspecified organism (principal); E43 Unspecified severe protein-calorie malnutrition; N17.0 Acute kidney failure with tubular necrosis; E87.1 Hypo-osmolality and hyponatremia; N39.0 Urinary tract infection, site not specified; C78.7 Secondary malignant neoplasm of liver and intrahepatic bile duct; C79.51 Secondary malignant neoplasm of bone; E87.2 Acidosis; D61.818 Other pancytopenia; G93.40 Encephalopathy, unspecified; Z68.42 Body mass index [BMI] 45.0-49.9, adult; B96.20 Unspecified Escherichia coli [E. coli] as the cause of diseases classified elsewhere; Z51.5 Encounter for palliative care; Z66 Do not resuscitate; K76.0 Fatty (change of) liver, not elsewhere classified; E55.9 Vitamin D deficiency, unspecified; C50.919 Malignant neoplasm of unspecified site of unspecified female breast; E03.9 Hypothyroidism, unspecified; E87.5 Hyperkalemia; D75.82 Heparin induced thrombocytopenia (HIT); E66.01 Morbid (severe) obesity due to excess calories; T50.8X5A Adverse effect of diagnostic agents, initial encounter; N14.1 Nephropathy induced by other drugs, medicaments and biological substances; B96.89 Other specified bacterial agents as the cause of diseases classified elsewhere; R31.29 Other microscopic hematuria; Z80.3 Family history of malignant neoplasm of breast; Z17.0 Estrogen receptor positive status [ER+]; Z88.0 Allergy status to penicillin; Z79.899 Other long term (current) drug therapy
CPT/HCPCS: 19083; 19285; 36415; 36600; 73552; 84145; 99285; J7620; 38222; 38505; 70450; 70553; 71045; 71275; 74177; 76642; 76700; 76770; 77012; 78306; 80053; 80307; 81001; 82272; 82306; 82330; 82378; 82436; 82533; 82550; 82570; 82607; 82728; 82803; 83540; 83550; 83605; 83615; 83735; 83880; 83970; 84100; 84133; 84156; 84300; 84439; 84443; 84484; 84550; 85025; 85045; 85060; 85097; 85610; 85730; 86022; 86038; 86039; 86063; 86160; 86162; 86225; 86705; 86706; 86803; 86850; 86900; 87040; 87077; 87086; 87186; 87340; 88112; 88237; 88264; 88280; 88305; 88311; 88313; 93005; 93306; 94640; 96361; 96374; 99156; 99157; A9585; G0378; J0696; J1644; J2185; J2250; J2270; J3010; J3490; Q9967; 77066; 92523-GN; A9503; J1200; J1652; J2060; J2310; J7030; J7040; P9035